=== PATIENT | female | born 1985 | race Hispanic/Latino ===

== ENCOUNTER 2022-06-04 21:27 | Emergency (ER) | payer SELFPAY ==
--- NOTE | 2022-06-04 23:03 | ER ---
Nurse's Notes [facility] Name: Yun Hernandes Age: 36 yrs Sex: Female : 1985 Arrival Date: 06/04/2022 Time: 21:31 Bed Waiting Private MD: Diagnosis: Nausea with vomiting, unspecified;Other malaise and fatigue Presentation: 06/04 21:36 Chief complaint: Patient states: "I just need to be evaluated to go back to work. I tw5 left work early feeling really nauseous. I was nauseous i vomited and I had some diarrhea. I slept it off and i have been feeling okay today.". Coronavirus screen: Vaccine status: Patient reports being unvaccinated. Ebola Screen: Patient negative for fever greater than or equal to 101.5 degrees Fahrenheit, and additional compatible Ebola Virus Disease symptoms Patient denies exposure to infectious person. Patient denies travel to an Ebola-affected area in the 21 days before illness onset. Initial Sepsis Screen: Does the patient meet any 2 criteria? No. Patient's initial sepsis screen is negative. Does the patient have a suspected source of infection? No. Patient's initial sepsis screen is negative. Risk Assessment: Do you want to hurt yourself or someone else? Patient reports no desire to harm self or others. Onset of symptoms was June 03, 2022 at 08:00. 21:36 Method Of Arrival: Ambulatory tw5 21:36 Acuity: ESTEPHANIA 4 tw5 Triage Assessment: 21:40 General: Appears in no apparent distress. Behavior is calm, cooperative, appropriate tw5 for age. Pain: Denies pain. 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 - Social history:: Smoking status: Patient denies any tobacco usage or history of. - Family history:: not pertinent. - Hospitalizations: : No recent hospitalization is reported. Screenin:43 Abuse screen: Denies threats or abuse. Denies injuries from another. Nutritional tw5 screening: No deficits noted. Tuberculosis screening: No symptoms or risk factors identified. Fall Risk None identified. Assessment: 21:43 Cardiovascular: No deficits noted. Respiratory: No deficits noted. GI: No deficits tw5 noted. 23:08 Reassessment: Patient is alert, oriented x 3, equal unlabored respirations, skin bb warm/dry/pink. pt verbalized understanding of and agrees to plan of care discharge instructions given pt ambulated with steady gait to exit. Psych: 22:48 [place] Suicide Severity Screening: "In your lifetime, have you ever done anything, tw5 started to do anything, or prepared to do anything to end your life?". Vital Signs: 21:36 BP 129 / 94; Pulse 64; Resp 18; Temp 97.6; Pulse Ox 100% on R/A; Weight 81.65 kg; tw5 Height 5 ft. 0 in. (152.40 cm); Pain 0/10; 21:36 Body Mass Index 35.15 (81.65 kg, 152.40 cm) tw5 ED Course: 21:31 Patient arrived in ED. ja2 21:38 Salvador Hunter MD is Attending Physician. rn 21:40 Triage completed. tw5 21:40 Patient placed. tw5 21:43 COVID swab sent to lab. tw5 21:43 No provider procedures requiring assistance completed. Patient did not have IV access tw5 during this emergency room visit. 21:47 SARS-COV-2 RT PCR (Document "Date of Onset" if Symptomatic) Sent. tw5 22:48 Arm band placed on right wrist. tw5 22:48 SARS-COV-2 RT PCR (Document "Date of Onset" if Symptomatic) Sent. tw5 23:09 Patient has correct armband on for positive identification. bb Administered Medications: No medications were administered Medication: 21:43 VIS not applicable for this client. tw5 Outcome: 23:02 Discharge ordered by . rn 23:09 Discharged to home ambulatory. bb 23:09 Condition: stable 23:09 Discharge instructions given to patient, Instructed on discharge instructions, follow up and referral plans. Demonstrated understanding of instructions, follow-up care. 23:09 Patient left the ED. bb Signatures: Treva Walls RN RN bb Nieto, Roman, MD MD rn Alexander, Jessica ja2 Wood, Tiffany tw5
--- NOTE | 2022-06-04 23:03 | EDPHYS ---
Physician Documentation [facility] Name: Yun Hernandes Age: 36 yrs Sex: Female : 1985 Arrival Date: 06/04/2022 Time: 21:31 Bed Waiting Private MD: ED Physician Salvador Hunter HPI: 06/04 21:43 This 36 yrs old Female presents to ER via Ambulatory with complaints of felt rn sick, needs work note. 21:44 The patient presents to the emergency department with nausea, vomiting, diarrhea. rn Onset: The symptoms/episode began/occurred yesterday. Possible causes: unknown. The symptoms are aggravated by nothing. The symptoms are alleviated by nothing. Associated signs and symptoms: Pertinent negatives: abdominal pain, fever, GI bleeding. Severity of symptoms: At their worst the symptoms were moderate in the emergency department the symptoms have resolved. The patient has not experienced similar symptoms in the past. The patient has not recently seen a physician. Pt reports yesterday felt sick at work with vomiting and diarrhea, today symptoms have resolved but work told her needs to be evaluated and needs work release so came here. Feels fine currently and denies vomiting or diarrhea today. Reports works in [employer], felt headache, nausea, vomiting, diarrhea, malaise, and generalized weakness. Has had tubes tied. . 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 - Social history:: Smoking status: Patient denies any tobacco usage or history of. - Family history:: not pertinent. - Hospitalizations: : No recent hospitalization is reported. ROS: 21:44 Constitutional: Negative for fever, chills, and weight loss, Eyes: Negative for injury, rn pain, redness, and discharge, Neck: Negative for injury, pain, and swelling, Cardiovascular: Negative for chest pain, palpitations, and edema, Respiratory: Negative for shortness of breath, cough, wheezing, and pleuritic chest pain, Abdomen/GI: Negative for abdominal pain, and constipation, MS/Extremity: Negative for injury and deformity, Skin: Negative for injury, rash, and discoloration, Neuro: Negative for headache, numbness, tingling, and seizure. Exam: 21:44 Constitutional: This is a well developed, well nourished patient who is awake, alert, rn and in no acute distress. Head/Face: Normocephalic, atraumatic. Eyes: Periorbital areas with no swelling, redness, or edema. ENT: dry MM, no stridor or swelling Cardiovascular: Regular rate and rhythm. No pulse deficits. Respiratory: No increased work of breathing, no retractions or nasal flaring. Abdomen/GI: Soft, non-tender Skin: Warm, dry MS/ Extremity: Pulses equal, no cyanosis. Neuro: Awake and alert, GCS 15 Vital Signs: 21:36 BP 129 / 94; Pulse 64; Resp 18; Temp 97.6; Pulse Ox 100% on R/A; Weight 81.65 kg; tw5 Height 5 ft. 0 in. (152.40 cm); Pain 0/10; 21:36 Body Mass Index 35.15 (81.65 kg, 152.40 cm) tw5 MDM: 21:38 Patient medically screened. rn 23:02 Differential diagnosis: viral gastroenteritis, gastroenteritis, heat exhaustion, COVID, rn viral syndrome. Data reviewed: vital signs, nurses notes, lab test result(s), and as a result, I will discharge patient. Counseling: I had a detailed discussion with the patient and/or guardian regarding: the historical points, exam findings, and any diagnostic results supporting the discharge/admit diagnosis, the need for outpatient follow up, to return to the emergency department if symptoms worsen or persist or if there are any questions or concerns that arise at home. Special discussion: I discussed with the patient/guardian in detail that at this point there is no indication for admission to the hospital. It is understood, however, that if the symptoms persist or worsen the patient needs to return immediately for re-evaluation. 06/04 21:43 Order name: SARS-COV-2 RT PCR (Document "Date of Onset" if Symptomatic); Complete Time: rn 23:02 Administered Medications: No medications were administered Disposition Summary: 06/04/22 23:02 Discharge Ordered Location: Home rn Problem: new rn Symptoms: are resolved rn Condition: Stable rn Diagnosis - Nausea with vomiting, unspecified rn - Other malaise and fatigue rn Followup: rn - With: Private Physician - When: As needed - Reason: Recheck today's complaints, Re-evaluation by your physician Discharge Instructions: - Discharge Summary Sheet rn - Nausea and Vomiting, Adult rn - Fatigue rn Forms: - Medication Reconciliation Form rn - Thank You Letter rn - Work release form bb - Antibiotic management retail intern - Prescription Opioid Use rn Signatures: Dispatcher [employer] EDSalvador Peterson MD MD rn Wood, Tiffany tw5
[2022-06-04 23:53] VITALS: BP 129/94; TEMP 97.6; O2SAT 100
== END 2022-06-04 23:09 | disposition home or self-care (01) ==
LOC: ER 21:27
DX: R11.2 Nausea with vomiting, unspecified (principal); R53.81 Other malaise; R53.83 Other fatigue; Z20.822 Contact with and (suspected) exposure to COVID-19
CPT/HCPCS: U0003

== ENCOUNTER 2022-10-06 13:22 | Emergency (ER) | payer SELFPAY ==
--- OUTSIDE RECORDS SUMMARY | 2022-10-06 13:25 | XMS REPORT | Continuity of Care Document ---
:[address] [facility] t Address [address] [place] [address] Care Team Providers Name Role Phone Ester Cheney Primary Care Physician [phone] Ester Cheney Attending Clinician Bertrand Navarro DO Attending Clinician Payers Payer Name Policy Type Policy Number Effective Date Expiration Date S ource Problems Condition Condition Condition Status Onset Resolution Last Treating Co mments Source Name Details Category Date Date Treatment Clinician Date Need for Need for Disease Active 2018-11 Unive rs influenza influenza 0-30 ity [place] [facility] [place] Menorrhagi Menorrhagi Disease Active 2018-11 U nivers a with a with 0-30 [place] Class 2 Class 2 Disease Active 2018-11 Univers obesity obesity 0-30 [place] with body with [place] mass [place] mass index 00 Me dical (BMI) of (BMI) of Branch 37.0 to 37.0 to 37.9 in 37.9 in adult, adult, unspecifie unspecifie d obesity d obesity type, type, unspecifie unspecifie d whether d whether serious serious comorbidit comorbidit y present y present Screening Screening Disease Active 2016-11 Uni vers examinatio examinatio 1-30 it y of n for STD n for STD [place] ([place]ually (sexually 00 Medi mary transmitte transmitte Br anch d disease) d disease) BMI BMI Disease Active 2016-11 Univers 37.0-37.9, 37.0-37.9, 1-30 it y of adult adult 00:00: [place] [address] Medical Branch History of History of Disease Active 2016-11 U nivers bilateral bilateral -30 ity of tubal tubal 00:00: [place] ligation ligation 00 Medica l Branch Polymenorr Polymenorr Disease Active 2016-11 U nivers hea hea -30 ity of 00:00: [place] [address] Medical Branch UTI UTI Disease Active 2016-11 Univers symptoms symptoms 0-03 ity of 00:00: [place] [address] Medical [place] Allergies, Adverse Reactions, Alerts This patient has no known allergies or adverse reactions. Social History Social Habit Start Date Stop Date Quantity Comments Source History [facility] o f Alcohol Frequency [place] M edical Branch History [facility] o f Alcohol Std Drinks [facility] History [facility] o f Alcohol Binge [place] Medic al Branch Alcohol intake 2019-08-31 2019-08-31 .43 /d University of 00:00:00 00:00:00 [facility] Alcohol Comment 2017-10-01 2017-10-01 social drinker Unive rsity of 00:00:00 00:00:00 [facility] Tobacco use and 2016-08-13 2016-08-13 Never used Universit y of exposure 00:00:00 00:00:00 [facility] Sex Ass[birth year] Universit y of 00:00:00 00:00:00 [facility] Smoking Status Start Date Stop Date Source Never smoker [facility] Medications Ordered Filled Start Stop Current Ordering Indication Dosage Frequency Signature Comments Components Source Medication Medication Date Date Medication? Clinician (SIG) Name Name norgestimat 2018-11 Yes [id number] 1{tbl} Take 1 Univers e-ethinyl 0-30 tablet by ity o f estradiol 00:00: mouth [place] (ORTHO 00 daily. Medical [employer] Branch LO, 28,) 0.18/0.215/ 0.25 mg-25 mcg tablet norgestimat 2018-11 Yes [id number] 1{tbl} Take 1 Univers e-ethinyl 0-30 tablet by ity o f estradiol 00:00: mouth [place] (ORTHO 00 daily. Medical [employer] Branch LO, 28,) 0.18/0.215/ 0.25 mg-25 mcg tablet Immunizations Ordered Filled Immunization Date Status Comments Sour e Immunization Name Name Td 2010-11-02 Completed University of 00:00:00 [facility] Td 2010-11-02 Completed University 00:00:00 [facility] Procedures This patient has no known procedures. Encounters Start End Encounter Admission Attending Care Care Encounter Source Date/Time Date/Time Type Type Clinicians Facility Department ID 2021-12-04 2021-12-04 Telephone Clark [facility] [id number] Univers 00:00:00 00:00:00 Ester Denise EMERGENCY MANAGEMENT CONSULTANT [id number] [facility] [id number] Joe as MATERNAL [id number] [facility] ical & CHILD [address] [place] [address] 2021-01-21 2021-01-21 Patient Ramon SDDREA [id number] Univers 00:00:00 00:00:00 Outreach [facility] [id number] [facility] [id number] [place] YOU[place] [id number] Sc dical [address] [place] [address] Results This patient has no known results.
--- NOTE | 2022-10-06 14:15 | ER ---
Nurse's Notes [facility] Name: Yun Hernandes Age: 37 yrs Sex: Female : 1985 Arrival Date: 10/06/2022 Time: 13:24 Bed Waiting Private MD: Diagnosis: Historical: ED Course: 10/06 13:24 Patient arrived in ED. as 13:27 Pa Duque MD is Attending Physician. [facility] 13:58 Triage completed. jl Administered Medications: No medications were administered Outcome: 14:14 Patient left the ED. jl Signatures: Pa Duque MD MD kdr Missy Siu Jahala, RN RN jl7 Corrections: (The following items were deleted from the chart) 13:59 13:56 Chief complaint: Patient states: cough, congestion, chills since [place] [address] 13:59 13:56 Coronavirus screen: Client presents with at least one sign or symptom that may jl7 indicate coronavirus-19. [facility] 59 13:56 Ebola Screen: No symptoms or risks identified at this time. [place] [address] 13:59 13:56 Initial Sepsis Screen: Does the patient meet any 2 criteria? No. Patient's [facility] initial sepsis screen is negative. Does the patient have a suspected source of infection? No. Patient's initial sepsis screen is negative. [facility] 13:59 13:56 Risk Assessment: Do you want to hurt yourself or someone else? Patient reports no [facility] desire to harm self or others. [facility] 59 13:56 Onset of symptoms was October 02, 2022 [place] [address] 13:59 13:56 Method Of Arrival: Ambulatory [place] [address] 13:59 13:56 BP 139 / 94; Pulse 105bpm; Resp 17bpm; Pulse Ox 96%; Temp 99.2F; 93.89 kg; Height [facility] 5 ft. 1 in.; BMI: 39.1; Pain 8/10; [facility] 13:59 13:56 Acuity: ESTEPHANIA 4 [facility] 14:00 13:58 Allergies: No Known Allergies; [facility] 14:00 13:58 Home Meds: Lisinopril Oral; [facility] 14:00 13:58 PMHx: Hypertensive disorder; [place] [address] 14:00 13:58 PSHx: Ligation of fallopian tube; jl7 jl7 14 13:58 Immunization history: Client reports receiving the 2nd dose of the Covid vaccine, jl7 jl7 : 13:58 Social history: Smoking status: Patient denies any tobacco usage or history of. jl7 jl7
== END 2022-10-06 14:14 | disposition left against medical advice (07) ==
LOC: ER 13:22
DX: Z53.21 Procedure and treatment not carried out due to patient leaving prior to being seen by health care provider (principal)
CPT/HCPCS: 99281